=== PATIENT | male | born 1980 | race African-American/Black ===

== ENCOUNTER 2021-05-30 18:23 | Emergency (ER) | payer MEDICAID, SELFPAY ==
[~2021-05-30 18:23] MED LIST: Iopamidol 370 76% 100 ML VIAL ONE
[2021-05-30] MEDS ORDERED: Ondansetron PF 4 MG/2 ML Vial ONE ×3 (18:26→20:17)
[2021-05-30] MEDS ORDERED: Ketorolac Tromethamine 30 MG/ML VIAL ONE (18:32)
[2021-05-30] MEDS ORDERED: Lorazepam 2 MG/ML VIAL ONE (18:32)
[2021-05-30] MEDS ORDERED: Metoclopramide HCl 10 MG/2 ML VIAL ONE (18:59)
[2021-05-30 21:41] LABS: #Basophils 0.1 thou/uL (0.0-0.2); #Lymphocytes 2.2 thou/uL (1.20-3.40); #Monocytes 0.6 thou/uL (0.11-0.59); #Neutrophils 12.8 thou/uL (1.40-6.50); %Basophils 0.8 % (0.0-1.0); %Lymphocytes 14.2 % (21.0-51.0); %Monocytes 3.6 % (0.0-10.0); %Neutrophils 81.4 % (42.0-75.0); Hemoglobin 13.7 g/dL (14.0-18.0); Mean Corpuscular HGB CONC 32.1 g/dL (32.0-36.0); Mean Corpuscular Hemoglobin 28.8 pg (27.0-31.0); Mean Corpuscular Volume 89.8 fL (78.0-98.0); Mean Platelet Volume 7.3 fL (7.4-10.4); Platelet Count 343 thou/uL (130-400); RBC Distribution Width 12.7 % (11.5-14.5); Red Blood Cell (RBC) Count 4.76 mill/uL (4.70-6.10); White Blood Cell (WBC) Count 15.7 thou/uL (4.8-10.8)
[2021-05-30] MEDS ORDERED: Glycopyrrolate 0.4 MG/ 2 ML VIAL ONE (21:51)
[2021-05-30 21:56] LABS: ALT (SGPT) 25 U/L (8-55); AST (SGOT) 15 U/L (5-34); Albumin 4.3 g/dL (3.5-5.0); Alkaline Phosphatase 87 U/L (40-110); Anion Gap 18 mmol/L (10-20); BUN (Urea Nitrogen) 12 mg/dL (8.9-20.6); Bilirubin, Total 0.5 mg/dL (0.2-1.2); Calc. Creatinine Clearance 0 mL/min (70-130); Calcium 9.7 mg/dL (7.8-10.44); Carbon Dioxide 21 mmol/L (22-29); Chloride 102 mmol/L (98-107); Globulin 4.6 g/dL (2.4-3.5); Glucose 132 mg/dL (70-105); Lipase 13 U/L (8-78); Potassium 3.9 mmol/L (3.5-5.1); Protein, Total 8.9 g/dL (6.0-8.3); Sodium 137 mmol/L (136-145)
[2021-05-30] MEDS ORDERED: Dicyclomine 20 MG TAB ONE (22:31)
== END 2021-05-30 22:30 | disposition home or self-care (01) ==
LOC: BURERS 18:23
DX: F11.13 Opioid abuse with withdrawal (principal); R11.2 Nausea with vomiting, unspecified; I10 Essential (primary) hypertension
CPT/HCPCS: 74177; 80053; 83690; 85025; 96361; 96374; 96375; 96376; J1885; J2060; J2405; J2765; Q9967

== ENCOUNTER 2021-06-02 02:51 | Emergency (ER) | payer SELFPAY | END 2021-06-02 03:28 | disposition left against medical advice (07) | LOC: BURERS 02:51 | DX: R51.9 Headache, unspecified (principal); I10 Essential (primary) hypertension; R11.2 Nausea with vomiting, unspecified | CPT/HCPCS: 99283 ==